=== PATIENT | male | born 1950 | race Caucasian/White ===

== ENCOUNTER 2018-11-05 15:02 | Emergency (ER) | payer MEDICARE ==
[~2018-11-05] VITALS: Ht 182.9 cm; Wt 100.0 kg
[2018-11-05 15:16] VITALS: BP 142/85
[2018-11-05] MEDS ORDERED: LIDOcaine 1% w/epiNEPHrine 1:200,000 30ml vial IM ONE (15:40)
[2018-11-05] MEDS ORDERED: bacitracin 15gm ointment TP ONE (15:40)
[2018-11-05] MEDS ORDERED: TETanus/Pertussis (Acell)/Diphther VAC/PF (Tdap-Adult) 0.5ml syringe IM ONE (15:40)
--- NOTE | 2018-11-05 16:22 | NUR ---
paged [phone]
== END 2018-11-05 18:21 | disposition home or self-care (01) ==
LOC: ER 15:03
DX: S01.01XA Laceration without foreign body of scalp, initial encounter (principal); S61.011A Laceration without foreign body of right thumb without damage to nail, initial encounter; I10 Essential (primary) hypertension; W22.8XXA Striking against or struck by other objects, initial encounter; Y93.89 Activity, other specified; Y92.89 Other specified places as the place of occurrence of the external cause; Y99.0 Civilian activity done for income or pay
CPT/HCPCS: 12004; 70450; 90471; 99284